=== PATIENT | female | born 1950 ===

== ENCOUNTER 2018-07-28 11:00 | Outpatient (CLI) | payer OTHER ==
[~2018-07-28] VITALS: Ht 157.5 cm; Wt 84.8 kg
== END 2018-07-28 11:15 | disposition home or self-care (01) ==
LOC: OFIC 805 11:00
DX: H61.23 Impacted cerumen, bilateral (principal); H90.3 Sensorineural hearing loss, bilateral

== ENCOUNTER 2018-08-22 08:44 | Outpatient (CLI) | payer OTHER | END 2018-08-22 13:49 | disposition home or self-care (01) | LOC: LAB 08:44 → OFIC 805 01-26 11:00 | DX: C50.412 Malignant neoplasm of upper-outer quadrant of left female breast (principal); Z51.81 Encounter for therapeutic drug level monitoring ==

== ENCOUNTER 2019-01-26 11:06 | Outpatient (CLI) | payer OTHER ==
[~2019-01-26] VITALS: Ht 152.4 cm; Wt 86.2 kg
== END 2019-01-26 11:20 | disposition home or self-care (01) ==
LOC: OFIC 805 11:06
DX: H61.23 Impacted cerumen, bilateral (principal); H90.3 Sensorineural hearing loss, bilateral

== ENCOUNTER 2019-03-28 08:15 | Outpatient (CLI) | payer OTHER | END 2019-03-28 08:33 | disposition home or self-care (01) | LOC: LAB 08:15 | DX: D64.89 Other specified anemias (principal); E03.8 Other specified hypothyroidism; R74.0 Nonspecific elevation of levels of transaminase and lactic acid dehydrogenase [LDH]; C50.412 Malignant neoplasm of upper-outer quadrant of left female breast; E55.9 Vitamin D deficiency, unspecified; E78.00 Pure hypercholesterolemia, unspecified ==

== ENCOUNTER 2020-02-13 14:43 | Outpatient (CLI) | payer OTHER | END 2020-02-13 19:26 | disposition home or self-care (01) | LOC: OFIC 805 14:43 | PROVIDERS: ATTEND Otolaryngology | DX: H90.3 Sensorineural hearing loss, bilateral (principal); H61.23 Impacted cerumen, bilateral ==

== ENCOUNTER 2020-08-20 11:26 | Outpatient (CLI) | payer OTHER | END 2020-08-20 17:10 | disposition home or self-care (01) | LOC: OFIC 805 11:26 | PROVIDERS: ATTEND Otolaryngology | DX: H90.3 Sensorineural hearing loss, bilateral (principal); H61.23 Impacted cerumen, bilateral ==